=== PATIENT | male | born 1970 | race Caucasian/White ===

== ENCOUNTER → 2020-10-13 | Emergency (ER) | payer MEDICARE, SELFPAY ==
[2020-10-13 23:49] LABS: Troponin I 0.463 ng/mL (< 0.028)
[2020-10-14 00:16] LABS: SARS-CoV-2 NAA Rapid Test Not Detected (NotDetected)
== END ==
LOC: CSHERS 21:56
DX: I21.4 Non-ST elevation (NSTEMI) myocardial infarction (principal); R77.8 Other specified abnormalities of plasma proteins; I25.2 Old myocardial infarction; H54.7 Unspecified visual loss; I50.9 Heart failure, unspecified; F17.210 Nicotine dependence, cigarettes, uncomplicated; Z20.822 Contact with and (suspected) exposure to COVID-19; Z95.0 Presence of cardiac pacemaker
CPT/HCPCS: 36415; 71045; 80053; 82550; 82553; 83690; 84484; 85025; 93005; 94760; J1650; J2270; U0002